=== PATIENT | male | born 1980 | race Caucasian/White ===

== ENCOUNTER 2018-03-06 12:12 | Emergency (ER) | payer OTHER ==
--- NOTE | 2018-03-06 13:48 | ED ---
Skin Complaint - HPI Summary HPI Summary: Rash on B/L forearms s/p contact w/ mulch and plantlife - he's not sure what he came into contact with but was at his friend's house and friend reported he has poison helio, poison oak and poison sumac on his property. He denies itching but admits a few blistered areas have formed and ruptured causing burning sensation. No difficulty breathing or swallowing. No h/o skin reactions to plantlife however he has had reaction to bees in the past - states he's outgrown this. No new medications. - History of Current Complaint Chief Complaint: EDRashSkinAbscess Time Seen by Provider: 03/06/18 12:37 Stated Complaint: RASH ON ARM Hx Obtained From: Patient Pain Intensity: 0 - Allergy/Home Medications Allergies/Adverse Reactions: Allergies Allergy/AdvReac Type Severity Reaction Status Date / Time beeswax Allergy Anaphylatic Verified 03/06/18 12:29 Shock Penicillins Allergy Hives/Diff. Verified 03/06/18 12:28 Breathing/I tching seafood Allergy Rash Uncoded 03/06/18 12:29 Home Medications: Home Medications NK [No Home Medications Reported] 03/06/18 [History Confirmed 03/06/18] PMH/Surg Hx/FS Hx/Imm Hx Previously Healthy: Yes Endocrine/Hematology History: Denies: Hx Anticoagulant Therapy, Hx Blood Disorders, Autoimmune Disease Infectious Disease History: No Infectious Disease History: Denies: Traveled Outside the [place] in Last 30 Days - Social History Alcohol Use: Occasionally Hx Substance Use: No Substance Use Type: Reports: None Hx Tobacco Use: No Smoking Status (MU): Never Smoked Tobacco Review of Systems Negative: Fatigue Negative: Photophobia, Blurred Vision, Drainage, Erythema Negative: Sore Throat, Nasal Discharge Negative: Chest Pain Negative: Shortness Of Breath Negative: Vomiting, Nausea Positive: no symptoms reported Musculoskeletal: Negative Positive: Rash Neurological: Negative Psychological: Normal All Other Systems Reviewed And Are Negative: Yes Physical Exam Triage Information Reviewed: Yes Vital Signs On Initial Exam: Initial Vitals Temp Pulse Resp BP Pulse Ox 98.2 F 84 18 127/84 97 03/06/18 12:24 03/06/18 12:24 03/06/18 12:24 03/06/18 12:24 03/06/18 12:24 Vital Signs Reviewed: Yes Appearance: Positive: Well-Appearing, No Pain Distress, Well-Nourished Skin: Positive: Warm, Skin Color Reflects Adequate Perfusion, Dry - scant ~2mm vesicles w/ a few linear lesions of erythema tracking about the fingers, hands and forearms B/L - no sarah beth skin breakdown, discharge, scabbing, bruising ENT: Positive: Hearing grossly normal Respiratory/Lung Sounds: Positive: Breath Sounds Present Cardiovascular: Positive: Pulses are Symmetrical in both Upper and Lower Extremities - no sarah beth edema of B/L UE's Musculoskeletal: Positive: Normal, Strength/ROM Intact Neurological: Positive: Normal, Sensory/Motor Intact, Alert, Oriented to Person Place, Time Psychiatric: Positive: Normal Diagnostics - Vital Signs Vital Signs Temp Pulse Resp BP Pulse Ox 03/06/18 12:24 98.2 F 84 18 127/84 97 - Laboratory Lab Statement: Any lab studies that have been ordered have been reviewed, and results considered in the medical decision making process. Course/Dx - Course Course Of Treatment: Washed pt's arms in cool running water, dried and wrapped w / gauze. Advised on supportive care and danger s/sx. Mild presentation of poison helio/oak/sumac at this point - no systemic steroids required. - Diagnoses Provider Diagnoses: Dermatitis Discharge - Sign-Out/Discharge Documenting (check all that apply): Patient Departure - Discharge Plan Condition: Stable Disposition: HOME Patient Education Materials: Contact Dermatitis (ED) Referrals: No Primary Care Phys,NOPCP [Primary Care Provider] - Additional Instructions: Keep areas dry and covered - avoid sun exposure You may apply ice to reduce itching, swelling, burning Additionally you may take an anti-histamine such as benadryl to help with itching - this may cause drowsiness - do not operate machinery while taking You may also try a topical wash called Zanfel - this will help to dry oil from plant exposure and reduce spread and irritation of oils, inflammation Topically, you may also use calamine lotion and/or hydrocortisone cream to aid with itching if this becomes an issue - do not touch your arms and then touch other areas of your body or others as it may spread *If you develop facial swelling, difficulty breathing or swallowing, return to the ED - Billing Disposition and Condition Condition: STABLE Disposition: Home
[2018-03-06 14:02] VITALS: BP 125/91
== END 2018-03-06 13:50 | disposition home or self-care (01) ==
LOC: ED 12:12
DX: L30.9 Dermatitis, unspecified (principal); Z88.0 Allergy status to penicillin
CPT/HCPCS: 99282